=== PATIENT | female | born 1940 | race Caucasian/White ===

== ENCOUNTER 2024-07-17 14:24 | Inpatient (IN) | payer MEDICARE, BC ==
[~2024-07-17] VITALS: Ht 160 cm; Wt 60.8 kg
[2024-07-17 16:38] LABS: BASOPHILS % 0.4 % (0.0-1.0); EOSINOPHILS # (AUTO) 0.1 (0.0-0.4); EOSINOPHILS % 0.6 % (0.0-6.0); HEMATOCRIT 41.3 % (34.2-44.1); HEMOGLOBIN 13.5 g/dL (12.0-16.0); LYMPHOCYTES # (AUTO) 1.9 (1.0-3.2); LYMPHOCYTES % 20.2 % (18.0-39.1); MEAN CORPUSCULAR HEMOGLOBIN 29.2 pg (28-32); MEAN CORPUSCULAR HGB CONC 32.7 g/dL (31-35); MEAN CORPUSCULAR VOLUME 89.2 fL (81-99); MONOCYTES # (AUTO) 0.5 (0.2-0.8); MONOCYTES % 5.1 % (4.4-11.3); NEUTROPHILS # (AUTO) 6.9 (2.1-6.9); NEUTROPHILS % 73.1 % (38.7-80.0); PLATELET COUNT 207 x10e3/uL (140-360); RED BLOOD COUNT 4.63 x10e6/uL (3.6-5.1); RED CELL DISTRIBUTION WIDTH 12.9 % (11.7-14.4); WHITE BLOOD COUNT 9.44 x10e3/uL (4.8-10.8)
[2024-07-17 16:54] LABS: INR 0.97; PROTHROMBIN TIME 13.5 seconds (11.9-14.5)
[2024-07-17 16:55] LABS: PARTIAL THROMBOPLASTIN TIME 24.5 seconds (23.8-35.5)
[2024-07-17 17:03] LABS: ALBUMIN 4.3 g/dL (3.5-5.0); ALBUMIN/GLOBULIN RATIO 1.5 (0.8-2.0); ANION GAP 16.6 mmol/L (8-16); BILIRUBIN,TOTAL 0.5 mg/dL (0.2-1.2); CALCIUM 9.6 mg/dL (8.4-10.2); CREATININE, SERUM 1.19 mg/dL (0.57-1.11); POTASSIUM 3.6 mmol/L (3.5-5.1); TOTAL PROTEIN 7.2 g/dL (6.5-8.1)
[2024-07-17 17:09] LABS: TROPONIN I 0.012 ng/mL (0-0.300)
[2024-07-17 17:18] LABS: CLARITY,URINE SL CLOUDY (CLEAR); COLOR,URINE YELLOW (YELLOW)
[2024-07-17 17:19] LABS: BILIRUBIN,URINE NEGATIVE (NEGATIVE); GLUCOSE, URINE NEGATIVE (NEGATIVE); KETONES,URINE NEGATIVE (NEGATIVE); LEUKOCYTE ESTERASE ,URINE SMALL (NEGATIVE); NITRITE,URINE POSITIVE (NEGATIVE); PH,URINE 6 (5 - 7); PROTEIN,URINE DIPSTICK NEGATIVE (NEGATIVE); URINE UROBILINOGEN 0.2 mg/dL (0.2 - 1)
[2024-07-17 17:31] LABS: WBC,URINE (MAN) 21-50 /HPF (0-5)
[2024-07-17 17:32] LABS: BACTERIA,URINE MODERATE /HPF; EPITHELIAL CELLS,URINE RARE /LPF; RBC,URINE 0-5 /HPF (0-5)
[2024-07-17] MEDS: ONDANSETRON HCL INJ 2MG/ML 2ML 2 MG/ML VIAL IV STA ×2 (18:03→18:42)
[2024-07-17] MEDS: SODIUM CHLORIDE 0.9% 1000ML 1,000 ML IV STA (18:03)
[2024-07-17] MEDS: DIAZEPAM INJ 5 MG/ML 2 ML IV ONE (18:05)
[2024-07-17 18:17] VITALS: PULSE 61; RESP 15; TEMP 98.9
[2024-07-17] MEDS: ACETAMINOPHEN 1000 MG/100 ML IV STA (18:42)
[2024-07-17] MEDS ORDERED: ONDANSETRON HCL INJ 2MG/ML 2ML 2 MG/ML VIAL IV PRN (18:45)
[2024-07-17] MEDS: SODIUM CHLORIDE 0.9% 1000ML 1,000 ML IV SCH (18:51)
[2024-07-17 19:40] VITALS: PULSE 74; RESP 18; O2SAT 97
[2024-07-17 20:00] VITALS: BP 165/65; PULSE 57; RESP 18; TEMP 97.2; O2SAT 100
[2024-07-17] MEDS: Vancomycin IV 1 GM in SODIUM CHLORIDE 0.9% 250ML 250 ML IV ONE (21:09)
[2024-07-17 22:10] VITALS: BP 165/65; PULSE 57; RESP 18; TEMP 97.2; O2SAT 100
[2024-07-18] VITALS (11 sets, daily range): BP systolic 143–176; BP diastolic 59–85; PULSE 56–109; RESP 18–20; TEMP 97.2–98.6; O2SAT 95–100
[2024-07-18] MEDS ORDERED: LOVASTATIN40 MG PO (01:27)
[2024-07-18] MEDS ORDERED: B12 ACTIVE1000 MCG PO (01:27)
[2024-07-18] MEDS ORDERED: VITAMIN C1000 MG PO (01:27)
[2024-07-18] MEDS ORDERED: VITAMIN D32400 UNIT/ PO (01:27)
[2024-07-18] MEDS ORDERED: TYLENOL325 MG PO (01:27)
[2024-07-18] MEDS ORDERED: METFORMIN HCL500 MG PO (01:27)
[2024-07-18] MEDS ORDERED: LOSARTAN POTASS50 MG PO (01:27)
[2024-07-18] MEDS ORDERED: VESICARE5 MG PO (01:31)
[2024-07-18] MEDS ORDERED: SIMPONI AR50 MG/4 ML (01:33)
[2024-07-18] MEDS: ONDANSETRON HCL INJ 2MG/ML 2ML 2 MG/ML VIAL IV PRN (04:50)
[2024-07-18] MEDS: MECLIZINE HCL 12.5 MG TAB PO PRN (04:52)
[2024-07-18] MEDS: ACETAMINOPHEN 1000 MG/100 ML IV PRN (04:52)
[2024-07-18 06:36] LABS: BASOPHILS % 0.3 % (0.0-1.0); EOSINOPHILS # (AUTO) 0.1 (0.0-0.4); EOSINOPHILS % 0.8 % (0.0-6.0); HEMATOCRIT 38.3 % (34.2-44.1); HEMOGLOBIN 12.4 g/dL (12.0-16.0); LYMPHOCYTES # (AUTO) 2.4 (1.0-3.2); LYMPHOCYTES % 27.5 % (18.0-39.1); MEAN CORPUSCULAR HEMOGLOBIN 29.2 pg (28-32); MEAN CORPUSCULAR HGB CONC 32.4 g/dL (31-35); MEAN CORPUSCULAR VOLUME 90.3 fL (81-99); MONOCYTES # (AUTO) 0.6 (0.2-0.8); MONOCYTES % 7.1 % (4.4-11.3); NEUTROPHILS # (AUTO) 5.5 (2.1-6.9); PLATELET COUNT 204 x10e3/uL (140-360); RED BLOOD COUNT 4.24 x10e6/uL (3.6-5.1); RED CELL DISTRIBUTION WIDTH 12.9 % (11.7-14.4); WHITE BLOOD COUNT 8.58 x10e3/uL (4.8-10.8)
[2024-07-18 06:45] LABS: ALBUMIN 3.5 g/dL (3.5-5.0); ALBUMIN/GLOBULIN RATIO 1.5 (0.8-2.0); ANION GAP 15.6 mmol/L (8-16); BILIRUBIN,TOTAL 0.6 mg/dL (0.2-1.2); CALCIUM 8.4 mg/dL (8.4-10.2); CHOL/HDL RATIO 2.8 (3.0-3.6); CREATININE, SERUM 0.88 mg/dL (0.57-1.11); POTASSIUM 3.6 mmol/L (3.5-5.1); TOTAL PROTEIN 5.9 g/dL (6.5-8.1)
[2024-07-18 06:53] LABS: TROPONIN I 0.011 ng/mL (0-0.300)
[2024-07-18] MEDS: MECLIZINE HCL 12.5 MG TAB PO SCH (19:47)
[2024-07-18] MEDS: TRAMADOL HCL 50 MG TAB PO PRN (20:46)
[2024-07-18 22:14] LABS: TROPONIN I 0.008 ng/mL (0-0.300)
[2024-07-19] VITALS (8 sets, daily range): BP systolic 101–160; BP diastolic 57–71; PULSE 59–70; RESP 18–20; TEMP 97.9–99.2; O2SAT 95–100
[2024-07-19 06:11] LABS: BASOPHILS % 0.4 % (0.0-1.0); EOSINOPHILS # (AUTO) 0.2 (0.0-0.4); EOSINOPHILS % 2.5 % (0.0-6.0); HEMATOCRIT 41.2 % (34.2-44.1); HEMOGLOBIN 13.2 g/dL (12.0-16.0); LYMPHOCYTES # (AUTO) 1.2 (1.0-3.2); LYMPHOCYTES % 13.5 % (18.0-39.1); MEAN CORPUSCULAR HEMOGLOBIN 28.9 pg (28-32); MEAN CORPUSCULAR VOLUME 90.4 fL (81-99); MONOCYTES # (AUTO) 0.6 (0.2-0.8); MONOCYTES % 6.1 % (4.4-11.3); NEUTROPHILS % 76.9 % (38.7-80.0); PLATELET COUNT 177 x10e3/uL (140-360); RED BLOOD COUNT 4.56 x10e6/uL (3.6-5.1); RED CELL DISTRIBUTION WIDTH 13.1 % (11.7-14.4); WHITE BLOOD COUNT 9.09 x10e3/uL (4.8-10.8)
[2024-07-19 07:21] LABS: ANION GAP 13.5 mmol/L (8-16); CALCIUM 8.5 mg/dL (8.4-10.2); CREATININE, SERUM 0.95 mg/dL (0.57-1.11); POTASSIUM 3.5 mmol/L (3.5-5.1)
[2024-07-19] MEDS: METFORMIN HCL 500 MG TAB PO SCH (08:19)
[2024-07-19] MEDS: SOLIFENACIN SUCCINATE 5 MG TAB PO SCH (08:19)
[2024-07-19] MEDS: LOSARTAN POTASSIUM 100 MG TAB PO SCH (08:20)
[2024-07-19] MEDS: PANTOPRAZOLE SOD 40 MG TABEC PO SCH (08:20)
[2024-07-19] MEDS: ASCORBIC ACID 500 MG TAB PO SCH (08:20)
[2024-07-20] VITALS (10 sets, daily range): BP systolic 93–133; BP diastolic 47–67; PULSE 64–78; RESP 16–20; TEMP 98–100.1; O2SAT 93–98
[2024-07-20 06:00] LABS: BASOPHILS % 0.5 % (0.0-1.0); EOSINOPHILS # (AUTO) 0.2 (0.0-0.4); EOSINOPHILS % 1.7 % (0.0-6.0); HEMATOCRIT 39.3 % (34.2-44.1); HEMOGLOBIN 12.9 g/dL (12.0-16.0); LYMPHOCYTES # (AUTO) 1.7 (1.0-3.2); LYMPHOCYTES % 19.7 % (18.0-39.1); MEAN CORPUSCULAR HEMOGLOBIN 29.4 pg (28-32); MEAN CORPUSCULAR HGB CONC 32.8 g/dL (31-35); MEAN CORPUSCULAR VOLUME 89.5 fL (81-99); MONOCYTES # (AUTO) 0.9 (0.2-0.8); NEUTROPHILS % 67.8 % (38.7-80.0); PLATELET COUNT 164 x10e3/uL (140-360); RED BLOOD COUNT 4.39 x10e6/uL (3.6-5.1); WHITE BLOOD COUNT 8.84 x10e3/uL (4.8-10.8)
[2024-07-20 06:41] LABS: ALBUMIN 3.3 g/dL (3.5-5.0); ALBUMIN/GLOBULIN RATIO 1.5 (0.8-2.0); ANION GAP 13.3 mmol/L (8-16); BILIRUBIN,TOTAL 1.1 mg/dL (0.2-1.2); CALCIUM 8.3 mg/dL (8.4-10.2); CREATININE, SERUM 0.87 mg/dL (0.57-1.11); TOTAL PROTEIN 5.5 g/dL (6.5-8.1)
[2024-07-20 06:42] LABS: POTASSIUM 3.3 mmol/L (3.5-5.1)
[2024-07-20 07:00] LABS: THYROID STIMULATING HORMONE 1.029 uIU/mL (0.350-4.940)
[2024-07-20] MEDS: ACETAMINOPHEN 325 MG TAB PO PRN (21:25)
[2024-07-21] VITALS (8 sets, daily range): BP systolic 108–118; BP diastolic 55–66; PULSE 63–85; RESP 17–20; TEMP 97.7–98.2; O2SAT 95–98
[2024-07-21] MEDS: METHYLPREDNISOLONE SOD SUCC 125 MG/2ML VIAL IV ONE (11:29)
[2024-07-21] MEDS: METHYLPREDNISOLONE SOD SUCC 125 MG/2ML VIAL IV SCH (14:41)
[2024-07-21] MEDS: DILTIAZEM HCL 5 MG/ML 5 ML VIAL IV STA (22:10)
[2024-07-22] VITALS: BP 92/61; PULSE 109; RESP 17; TEMP 97.5; O2SAT 97
[2024-07-22 04:00] VITALS: BP 112/67; PULSE 66; RESP 18; TEMP 97.6; O2SAT 95
[2024-07-22 05:25] LABS: BASOPHILS % 0.1 % (0.0-1.0); HEMATOCRIT 36.5 % (34.2-44.1); HEMOGLOBIN 12.3 g/dL (12.0-16.0); LYMPHOCYTES # (AUTO) 0.8 (1.0-3.2); LYMPHOCYTES % 12.1 % (18.0-39.1); MEAN CORPUSCULAR HEMOGLOBIN 29.6 pg (28-32); MEAN CORPUSCULAR HGB CONC 33.7 g/dL (31-35); MEAN CORPUSCULAR VOLUME 87.7 fL (81-99); MONOCYTES # (AUTO) 0.2 (0.2-0.8); MONOCYTES % 3.3 % (4.4-11.3); NEUTROPHILS # (AUTO) 5.6 (2.1-6.9); NEUTROPHILS % 83.9 % (38.7-80.0); PLATELET COUNT 166 x10e3/uL (140-360); RED BLOOD COUNT 4.16 x10e6/uL (3.6-5.1); RED CELL DISTRIBUTION WIDTH 12.8 % (11.7-14.4)
[2024-07-22 05:53] LABS: ANION GAP 15.9 mmol/L (8-16); CALCIUM 8.7 mg/dL (8.4-10.2); CREATININE, SERUM 1.06 mg/dL (0.57-1.11); POTASSIUM 3.9 mmol/L (3.5-5.1)
[2024-07-22 07:38] VITALS: PULSE 68; RESP 18; O2SAT 95
[2024-07-22 08:33] VITALS: BP 140/71; PULSE 65; RESP 18; TEMP 97.6; O2SAT 96
[2024-07-22 09:42] VITALS: BP 140/71; PULSE 65; RESP 18; TEMP 97.6; O2SAT 96
[2024-07-22] MEDS ORDERED: LEVOFLOXACIN 750MG/D5W 150ML 150 ML IV SCH (11:00)
[2024-07-22] MEDS: LEVOFLOXACIN 750MG/D5W 150ML 150 ML IV SCH (11:47)
[2024-07-22 12:00] VITALS: BP 157/76; PULSE 71; RESP 17; TEMP 97.9; O2SAT 96
[2024-07-22] MEDS ORDERED: LEVOFLOXACIN250 MG PO (15:36)
== END 2024-07-22 16:00 | disposition home or self-care (01) | DRG 149 ==
LOC: ER 17:27 → ERHOLD 18:56 → MED/SURG2 20:23
PROVIDERS: ADMIT Internal Medicine; ATTEND Internal Medicine
DX: H81.399 Other peripheral vertigo, unspecified ear (principal); N39.0 Urinary tract infection, site not specified; D84.821 Immunodeficiency due to drugs; Z16.24 Resistance to multiple antibiotics; E11.22 Type 2 diabetes mellitus with diabetic chronic kidney disease; I12.9 Hypertensive chronic kidney disease with stage 1 through stage 4 chronic kidney disease, or unspecified chronic kidney disease; N18.31 Chronic kidney disease, stage 3a; E86.0 Dehydration; B96.89 Other specified bacterial agents as the cause of diseases classified elsewhere; I48.0 Paroxysmal atrial fibrillation; M79.2 Neuralgia and neuritis, unspecified; M06.9 Rheumatoid arthritis, unspecified; R11.10 Vomiting, unspecified; N28.9 Disorder of kidney and ureter, unspecified; Z79.60 Long term (current) use of unspecified immunomodulators and immunosuppressants; Z79.84 Long term (current) use of oral hypoglycemic drugs
CPT/HCPCS: 36415; 70450; 70551; 71045; 80048; 80053; 80061; 81001; 82550; 82948; 83036; 83735; 84443; 84484; 85025; 85610; 85730; 87086; 87186; 93005; 93880; 94799; 99284; J0696; J2405; J2470; J2919; J3360; J7030; J7050